=== PATIENT | male | born 1990 | race Caucasian/White ===

== ENCOUNTER 2023-09-07 11:47 | Emergency (ER) | payer BC, SELFPAY ==
[2023-09-07 11:48] VITALS: BP 174/96
--- NOTE | 2023-09-07 12:23 | ED.SKININJ ---
HPI-Injury
General
Chief Complaint: Skin Problem
Source: patient
Exam Limitations: none
Time Seen by Provider: 09/07/23 11:59
Nursing documentation reviewed up to this point in time: agreed with
Travel History
Have you had any contact with someone who has COVID-19?: No
Do you have any symptoms of coronavirus? Fever > 100 degrees, chills, cough, shortness of breath, sore throat, loss of taste or smell, muscle aches, or headache?: No
History of Present Illness-Injury
Initial Injury comments:
33-year-old male with no significant past medical history states 2 weeks ago he noticed an itchy bump just below the left knee. 1 week ago became painful and red, he saw his parachute taper and just yesterday finished a 7-day course of Bactrim DS
twice daily with no improvement. It has not been draining. He denies fever or chills. Feels well otherwise.
Past History
Past History
ED Past Medical History: None
ED Past Surgical History: None
Social History
Tobacco: Non-smoker
Alcohol: Occasional
Personal: Single
Living: with roommate
Employment: Employed ([employer])
Review of Systems
Review of Systems
Allergies reviewed?: Yes
All Other Systems: ROS reviewed and negative except as documented in HPI and ROS
Constitutional: Denies fever or chills
ABD/GI: Denies nausea or vomiting
Skin: Reports other (skin infection just below left knee, not improving after 7 d of Bactrim)
Phy Exam
Physical Exam
Physical Exam:
PHYSICAL EXAMINATION:
General: no apparent distress, not acutely ill
Neuro: alert and oriented.
Psychiatric: well kept. interactive and cooperative
Musculoskeletal: Moves with ease
Skin: Warm, pink. Just below the lateral aspect of the left knee patella is a 4 x 4 area of redness, tenderness, pointing in the middle with a scab in the center. 5 mm area of fluctuance.
Course
Orders/Labs/Results
Orders:
Orders
09/07/23 12:20
Vital Signs- Treatment ONCE
Frequency: Once
Comment: Recheck BP please
Vital Signs
Initial and Last Documented VS:
Initial Vital Signs
Temp Pulse Resp BP Pulse Ox
98.6 F 78 18 174/96 99
09/07/23 11:48 09/07/23 11:48 09/07/23 11:48 09/07/23 11:48 09/07/23 11:48
Last Documented Vital Signs
Temp Pulse Resp BP Pulse Ox
98.6 F 60 18 142/98 95
09/07/23 11:48 09/07/23 12:58 09/07/23 12:58 09/07/23 12:58 09/07/23 12:58
Procedures
Other
Indication for procedure:: Small abscess left knee
Additional Procedure:
After anesthetizing the area with 1% lidocaine with epi, the scab was deroofed with a sterile #18 needle and a small amount of pus was expressed. Area was irrigated with normal saline and Band-Aid applied.
MDM/Problems Addressed
Differential Diagnosis Includes:
Abscess, cellulitis
MDM/Problems Addressed:
33-year-old male with no significant past medical history states 2 weeks ago he noticed an itchy bump just below the left knee. 1 week ago became painful and red, he saw his parachute taper and just yesterday finished a 7-day course of Bactrim DS
twice daily with no improvement. No better but no worse.
It has not been draining. He denies fever or chills. Feels well otherwise.
After scab debrided and expressed small amount of pus, irrigated the area well with normal saline, dressing applied
prescription for doxycycline sent to patient's pharmacy
*Critical Care Note
Total Time (30-74mins, 75-104mins- exclusive of procedures): Not Applicable
ED Attending Note
-
Portions of this chart may have been created with voice recognition software.� Occasional wrong word or��sound alike� substitutions may have occurred due to the inherent limitations of voice recognition software.
Discharge Plan
Departure
Patient Disposition: Home (Routine Discharge)
Date of Disposition: 09/07/23
Time of Disposition: 12:19
Patient with high blood pressure during this ER visit?: No
Condition: Good
Discharge Problem:
Cellulitis of left knee
Instructions: Cellulitis (Skin Infection), Adult (DC), Skin Abscess
Prescriptions:
New
mupirocin 2 % ointment
1 applic topical BID Qty: 15 0RF
doxycycline hyclate 100 mg capsule
100 mg PO BID Qty: 14 0RF
Referrals:
UNKNOWN - PT DOES,NOT KNOW [Family Provider] -
Activity Restrictions/Additional Instructions:
As we discussed, I sent a prescription to your pharmacy for mupirocin ointment and doxycycline antibiotic.
Warm moist compress or soak 2-3 times a day for 2 days then as needed.
Interventions
Interventions:
*Risk Screen - Suicide Last Done: 09/07/23 12:54
*General Assessment Last Done: 09/07/23 12:54
*Neglect/Abuse Screening Last Done: 09/07/23 12:54
ED- Fall Risk Assessment Last Done: 09/07/23 12:54
*ED COVID-19 Vaccine History Last Done: 09/07/23 12:54
*Nursing Disposition Last Done: 09/07/23 12:58
ED-Skin Assessment Last Done: 09/07/23 12:54
Discharge Date and Time
Discharge Date/Time: 09/07/23 12:59
[2023-09-07 12:58] VITALS: BP 142/98
== END 2023-09-07 12:59 | disposition home or self-care (01) ==
LOC: EMR 11:47
PROVIDERS: EMERGENCY PHYSICIAN Emergency Medicine
DX: L03.116 Cellulitis of left lower limb (principal); L02.416 Cutaneous abscess of left lower limb
CPT/HCPCS: 99283

== ENCOUNTER 2024-02-19 11:27 | Emergency (ER) | payer BC, SELFPAY ==
[2024-02-19 11:37] VITALS: BP 168/96
[2024-02-19 11:58] LABS: % Basophils 0.7 % (0-2); % Eosinophils 1.7 % (0-6); % Immature Granulocytes 0.3 % (0-0.5); % Lymphocytes 41.3 % (20.5-51.1); % Monocytes 7.7 % (1.7-9.3); % Neutrophils 48.3 % (42.2-75.2); Absolute Eosinophils 0.1 10^3/uL (0-0.7); Absolute Lymphocytes 2.5 10^3/uL (1.2-3.4); Absolute Monocytes 0.5 10^3/uL (0.1-0.6); Absolute Neutrophils 2.9 10^3/uL (1.4-6.5); Hematocrit 45.1 % (39.0-52.0); Hemoglobin 15.9 g/dL (13.0-18.0); Mean Corp Hgb Conc. 35.3 g/dL (33.0-37.0); Mean Corpuscular Hgb 29.4 pg (27.0-31.0); Mean Corpuscular Volume 83.5 fL (80.0-94.0); Mean Platelet Volume 10.3 fL (7.4-10.4); Nucleated Red Blood Cells % 0 % (-); Platelet Count 251 10^3/uL (130-400); Red Cell Dist. Width 12.4 % (11.5-14.5)
[2024-02-19 12:11] LABS: ALT (SGPT) 51 U/L (0-50); AST (SGOT) 32 U/L (17-59); Albumin 4.7 g/dl (3.5-5.0); Alkaline Phosphatase 51 U/L (38-126); Blood Urea Nitrogen 14 mg/dl (9-20); Calcium 9.8 mg/dl (8.4-10.2); Carbon Dioxide 27 mmol/L (22-30); Chloride 107 mmol/L (98-107); Glucose 93 mg/dl (70-99); Lipase 90 U/L (23-300); Potassium 4.5 mmol/L (3.5-5.1); Sodium 142 mmol/L (135-145); Total Bilirubin 0.3 mg/dl (0.2-1.3); Total Protein 7.6 g/dl (6.3-8.2); eGFR > 60.00
--- NOTE | 2024-02-19 12:45 | ED.GENMED ---
History of Present Illness
General
Chief Complaint: Abdominal Pain
Time Seen by Provider: 02/19/24 12:34
History of Present Illness
History of Present Illness:
HPI: Patient has been having right flank and right upper quadrant pain over the past 4 to 5 days. He has some associated nausea intermittently. He went to urgent care initially and they referred him here for further evaluation.
EXAM:
GENERAL: Well appearing in no distress
HEENT: Moist oral mucosa
CARDIOVASCULAR: No murmurs, normal heart rate, regular rhythm, No chest wall tenderness
PULMONARY: No respiratory distress, breath sounds are clear and equal
ABDOMEN: Soft with no peritoneal signs, moderate right upper quadrant tenderness, questionable if any right CVA tenderness
NEUROLOGIC: Excellent strength all extremities, no coordination deficits
PSYCHIATRIC: Appropriate mental status, normal insight and judgement
EXTREMITIES: Nontender, no edema, moves all extremities equally
SKIN: No rash, no lesions
TIME OF INITIAL ENCOUNTER: 12:40 PM
NUMBER AND COMPLEXITY OF PROBLEMS ADDRESSED AT THE ENCOUNTER
� Chronic conditions affecting care: Denies any significant past medical history
� Acute Exacerbation and/or Progression of Chronic Illness: This is an acute problem
� Differential Diagnosis includes: Biliary colic, cholecystitis, highly doubt appendicitis as he has no right lower quadrant pain/tenderness ureteral stone unlikely as there is no blood in the urine
AMOUNT AND/OR COMPLEXITY OF DATA TO BE REVIEWED AND ANALYZED
� I performed an independent evaluation of and my interpretation is:
EKG:
CT:
X-rays:
Laboratory Studies: White count normal, chemistries unremarkable including LFTs, lipase normal
Other: Ultrasound imaging shows a fatty liver but no other clear cause of her pain; no hydronephrosis, no gallstones, no cholecystitis
� Review of other/old records: Records from urgent care show a urinalysis that shows no microscopic hematuria
� Clinical information was obtained by an independent historian: None needed
� Prescriptions/Medications Considered but not given:
� Further testing considered but not performed:
RISK OF COMPLICATIONS AND/OR MORBIDITY OR MORTALITY OF PATIENT MANAGEMENT
� Social determinants of health affecting care:
� Discussion with other providers:
� Escalation of care including admission/observation vs risk of discharge considered: The patient has 4 to 5 days of intermittent right upper quadrant pain. Will obtain ultrasound imaging. Urinalysis from urgent care
unremarkable including no blood and white count here is normal. On reassessment at 3 PM, the patient is very comfortable in appearance. I recommended NSAIDs as ED workup was relatively unremarkable.
Past History
Past History
ED Past Medical History: None
ED Past Surgical History: None
Social History
Tobacco: Non-smoker
Alcohol: Occasional
Personal: Single
Living: with roommate
Employment: Employed ([employer])
Phy Exam
Physical Exam
Physical Exam:
See HPI
Course
Orders/Labs/Results
Orders:
Orders
02/19/24 11:41
Complete Blood Count/With Diff Urgent
Comprehensive Metabolic Panel Urgent
Lipase Urgent
02/19/24 12:44
US Abdomen Complete/Upper Urgent
Comment:
Reason For Exam: RUQ pain R flank pain; PLEASE INCL KIDNEY
Abnormal Lab Results
02/19/24
11:41
ALT 51 H U/L
(0-50)
02/19/24 11:41
02/19/24 11:41
Vital Signs
Initial and Last Documented VS:
Initial Vital Signs
Temp Pulse Resp BP Pulse Ox
98.3 F 63 16 168/96 99
02/19/24 11:37 02/19/24 11:37 02/19/24 11:37 02/19/24 11:37 02/19/24 11:37
Last Documented Vital Signs
Temp Pulse Resp BP Pulse Ox
98.3 F 59 18 126/74 96
02/19/24 11:37 02/19/24 13:49 02/19/24 13:49 02/19/24 13:49 02/19/24 13:49
*Critical Care Note
Total Time (30-74mins, 75-104mins- exclusive of procedures): Not Applicable
ED Attending Note
-
Portions of this chart may have been created with voice recognition software.� Occasional wrong word or��sound alike� substitutions may have occurred due to the inherent limitations of voice recognition software.
Discharge Plan
Departure
Prescriptions:
No Action
mupirocin 2 % ointment
1 applic topical BID Qty: 15 0RF
doxycycline hyclate 100 mg capsule
100 mg PO BID Qty: 14 0RF
Referrals:
NONE,* [Family Provider] -
Interventions
Interventions:
*Risk Screen - Suicide Last Done: 02/19/24 12:41
*General Assessment Last Done: 02/19/24 11:37
*Neglect/Abuse Screening Last Done: 02/19/24 12:41
ED- Fall Risk Assessment Last Done: 02/19/24 12:41
*ED COVID-19 Vaccine History Last Done: 02/19/24 11:37
NO-Qbvtsj-Rivvnzhfoj Assessment Last Done: 02/19/24 12:42
Discharge Date and Time
Print Language: [place]
[2024-02-19 13:49] VITALS: BP 126/74
== END 2024-02-19 15:14 | disposition home or self-care (01) ==
LOC: EMR 11:27
PROVIDERS: Emergency Medicine; EMERGENCY PHYSICIAN Emergency Medicine
DX: R10.11 Right upper quadrant pain (principal)
CPT/HCPCS: 99284; 76700; 80053; 83690; 85025